=== PATIENT | female | born 1980 | race Caucasian/White ===

== ENCOUNTER 2021-07-17 12:16 | Emergency (ER) | payer BC ==
[~2021-07-17] VITALS: Ht 162.6 cm; Wt 70.3 kg
[2021-07-17 12:34] LABS: ABSOLUTE EOSINOPHILS 0.2 thou/uL (0.0-0.7); ABSOLUTE LYMPHOCYTES 2.3 thou/uL (0.8-5.3); ABSOLUTE MONOCYTES 0.5 thou/uL (0.0-1.2); ABSOLUTE NEUTROPHILS 4.9 thou/uL (1.6-8.1); BASOPHILS 0.6 %; EOSINOPHILS 2.2 %; HEMOGLOBIN 10.8 gm/dL (12.0-15.0); LYMPHOCYTES 28.8 %; MCH 27.2 pg (26.0-34.0); MCHC 32.8 g/dL (28.0-37.0); MCV 82.9 fL (80.0-100.0); MPV 7.5 fl. (7.2-11.1); NUCLEATED RBCS 0 /100WBC; PLATELET COUNT* 278 thou/uL (150-400); POLYS 62.4 %; RBC 3.98 mil/uL (4.20-5.00); RDW-CV 13.9 % (10.5-14.5); WBC 7.8 thou/uL (4.0-11.0)
[2021-07-17 12:49] LABS: CALCIUM 8.4 mg/dL (8.5-10.1); CREATININE 0.7 mg/dL (0.6-1.3); POTASSIUM 3.7 mmol/L (3.5-5.1)
[2021-07-17 12:54] LABS: ALBUMIN 3.5 g/dL (3.4-5.0); TOTAL BILIRUBIN 0.2 mg/dL (<0.1-1.0); TOTAL PROTEIN 6.8 g/dL (6.4-8.2)
--- NOTE | 2021-07-17 13:02 | EKG ---
[place] [address] ELECTROCARDIOGRAM REPORT Name: MARIUM MOSQUERA Room: [facility]#: [id number] Admission: Attend Phys: Discharge: Date of : 76 Date of Service: 07/17/21 1216 Report #: [id number] THIS REPORT FOR: //name// [facility] ED Test Date: 2021-07-17 Test Time: 12:16:28 Pat Name: MARIUM MOSQUERA Department: Room: Gender: F [employer]: [place] : 1980 Requested By: Elma Hillman Order Number: [id number] MD: Guy Davis Measurements Intervals Anabel Rate: 68 P: 55 OK: 142 QRS: 10 QRSD: 121 T: -17 QT: 436 QTc: 464 Interpretive Statements Sinus rhythm Nonspecific intraventricular conduction delay Nonspecific T abnrm, anterolateral leads No previous ECG available for comparison Electronically Signed On 07-17-2021 13:01:53 CDT by Guy Davis [email or web address] <ELECTRONICALLY SIGNED> By: Guy Davis MD, [facility] 07/17/21 1301 1216 121 Guy Davis MD, [facility] /EPI
[2021-07-17] MEDS ORDERED: NAPROSYN500 MG PO (14:43)
[2021-07-17] MEDS ORDERED: MEDROLDOSEPACK PO (14:43)
[2021-07-17] MEDS ORDERED: FLEXERIL PO (14:43)
[2021-07-17 15:15] VITALS: BP 128/69
== END 2021-07-17 15:15 | disposition home or self-care (01) ==
LOC: M.ERS 12:16
PROVIDERS: Physician Assistant
DX: R07.89 Other chest pain (principal); Z98.890 Other specified postprocedural states